=== PATIENT | female | born 2000 | race Asian ===

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

== ENCOUNTER 2020-03-22 18:53 | Outpatient (CLI) | payer OTHER | END 2020-03-22 18:54 | disposition critical access hospital (66) | LOC: EMS 18:53 | PROVIDERS: ATTEND Surgery | DX: R56.9 Unspecified convulsions (principal) | CPT/HCPCS: A0425; A0427 ==

== ENCOUNTER 2020-03-22 19:11 | Emergency (ER) | payer MEDICAID, OTHER ==
--- NOTE | 2020-03-22 19:21 | ED Physician Documentation ---
History of Present Illness - Stated complaint Stated Complaint: SZ - Chief complaint Chief Complaint: Neuro - History obtained from History obtained from: Patient, EMS - History of Present Illness Timing: Today Pain level max: 0 Pain level now: 0 - Additonal information Additional information: 19-year-old female with a history of autism and traumatic brain injury presents to the emergency department after having a seizure at home tonight. Her last seizure was reportedly 3 years ago. She is on Keppra at home. She states she has not missed any doses. No difficulty with sleeping. No recent illness. Tonight she was walking upstairs when her mother heard a thump and found the patient having a seizure on the landing of the staircase. Placed in a c-collar and backboard by EMS. Review of Systems Constitutional: denies: Fever, Chills Skin: denies: Rash Musculoskeletal: denies: Neck pain, Back pain Neurologic: reports: Seizure. denies: Focal weakness, Numbness PD PAST MEDICAL HISTORY - Past Medical History Cardiovascular: None Respiratory: None Neuro: Other (autism) Endocrine/Autoimmune: None GI: None Psych: None Musculoskeletal: None - Present Medications Home Medications: Ambulatory Orders Medication Instructions Recorded Confirmed levETIRAcetam [Keppra] 5 ml PO BID 03/22/20 03/22/20 - Allergies Allergies/Adverse Reactions: Allergies Allergy/AdvReac Type Severity Reaction Status Date / Time No Known Drug Allergies Allergy Verified 03/22/20 19:19 PD ED PE NORMAL - Vitals Vital signs reviewed: Yes - General General: Alert and oriented X 3, No acute distress - HEENT HEENT: Atraumatic, PERRL, Ears normal, Moist mucous membranes, Pharynx benign - Neck Neck: Supple, no meningeal sign, No bony TTP - Cardiac Cardiac: RRR - Respiratory Respiratory: No respiratory distress, Clear bilaterally - Abdomen Abdomen: Soft, Non tender, Non distended - Back Back: No spinal TTP - Derm Derm: Warm and dry - Extremities Extremities: Normal ROM s pain - Neuro Neuro: Alert and oriented X 3, 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, No motor deficit, No sensory deficit, Normal speech Eye Opening: Spontaneous Motor: Obeys Commands Verbal: Oriented GCS Score: 15 Results - Vitals Vitals: Vital Signs - 24 hr 03/22/20 03/22/20 03/22/20 19:21 19:23 20:06 Temperature 36.9 C 36.9 C 36.9 C Heart Rate 116 H 110 H 108 H Respiratory 18 18 18 Rate Blood Pressure 124/70 124/70 103/74 O2 Saturation 99 99 100 03/22/20 20:56 Temperature 36.9 C Heart Rate 98 Respiratory 18 Rate Blood Pressure 110/72 O2 Saturation 100 Oxygen O2 Source Room air - Rads (name of study) head CT Radiology: Prelim report reviewed, EMP read contemporaneously, See rad report (no acute abnormality) cervical spine CT Radiology: Prelim report reviewed, EMP read contemporaneously, See rad report (no acute abnormality) PD MEDICAL DECISION MAKING - ED course Complexity details: reviewed results, re-evaluated patient, considered differential, d/w patient, d/w family ED course: 19-year-old female with recurrent seizures. She states she has not missed any dosages of her medication. No recent illness. No acute findings on CT of the head or neck. CTs performed as she was still post ictal and combined with her autism and TBI, unclear how responsive to pain she would have been at the time. Patient is eating and drinking. Ambulating well. No intraoral lesions. Mother counseled regarding signs and symptoms for which I believe and urgent re- evaluation would be necessary. Mother with good understanding of and agreement to plan and is comfortable going home at this time This document was made in part using voice recognition software. While efforts are made to proofread this document, sound alike and grammatical errors may occur. Departure - Departure Disposition: 01 Home, Self Care Clinical Impression: Seizure Condition: Good Instructions: ED Seizure Recurrent Follow-Up: your,doctor in 1 week [Other] Comments: Follow-up with your doctor for further care. Return if you worsen. Continue your medications at home. Discharge Date/Time: 03/22/20 20:56
--- NOTE | 2020-03-22 19:45 | CT Report ---
PROCEDURE: HEAD WO INDICATIONS: fall, seizure TECHNIQUE: Noncontrast 4.5 mm thick angled axial sections acquired from the foramen magnum to the vertex. For r adiation dose reduction, the following was used: automated exposure control, adjustment of mA and/or kV according to patient size. COMPARISON: 09/12/2017 FINDINGS: Image quality: Excellent. CSF spaces: Basal cisterns are patent. No extra-axial fluid collections. Ventricles are normal in size and shape. Brain: No midline shift. No intracranial masses or hemorrhage. Niño-white matter interface is norm al. Skull and face: Calvarium and visualized facial bones are intact, without suspicious lesions. Sinuses: Visualized sinuses and mastoids are clear. IMPRESSION: Negative head CT in the setting of acute trauma. No evidence acute stroke, hemorrhage, o r mass. Reviewed by: Rodolfo Brown MD on 03/22/2020 7:44 PM PST Approved by: Rodolfo Brown MD on 03/22/2020 7:44 PM PST Station ID: [id number]
--- NOTE | 2020-03-22 19:47 | CT Report ---
PROCEDURE: CERVICAL SPINE WO INDICATIONS: fall, seizure TECHNIQUE: Noncontrast 3 mm thick sections acquired from the skull base to the T4 level. Sagittal and coronal r eformats were then constructed. For radiation dose reduction, the following was used: automated exp osure control, adjustment of mA and/or kV according to patient size. COMPARISON: None. FINDINGS: Image quality: Excellent. Bones: No fractures or dislocations. Visualized superior ribs are intact. Soft tissues: Prevertebral soft tissues are normal in thickness. No paravertebral hematomas. No ap ical pneumothoraces. IMPRESSION: No evidence acute cervical fracture or dislocation. Reviewed by: Rodolfo Brown MD on 03/22/2020 7:45 PM PST Approved by: Rodolfo Brown MD on 03/22/2020 7:45 PM PST Station ID: [id number]
[2020-03-22 20:59] VITALS: BP 110/72
== END 2020-03-22 20:56 | disposition home or self-care (01) ==
LOC: EDUNIT# → ED 19:11
DX: R56.9 Unspecified convulsions (principal); F84.0 Autistic disorder; Z87.820 Personal history of traumatic brain injury; Z79.899 Other long term (current) drug therapy
CPT/HCPCS: 99284

== ENCOUNTER 2022-04-03 07:00 | Outpatient (CLI) | payer MEDICAID, OTHER ==
[2022-04-03 21:16] LABS: BASOPHILS % (AUTO) 0.5 %; EOSINOPHILS # (AUTO) 0.1 10^3/uL (0.0-0.7); EOSINOPHILS % (AUTO) 1.7 %; HCT - HEMATOCRIT 43.7 % (37.0-47.0); HGB - HEMOGLOBIN 14.8 g/dL (12.0-16.0); LYMPHOCYTES # (AUTO) 2.7 10^3/uL (1.5-3.5); LYMPHOCYTES % (AUTO) 35.9 %; MEAN CORPUSCULAR HEMOGLOBIN 30.1 pg (27.0-31.0); MEAN CORPUSCULAR HGB CONC 33.9 g/dL (32.0-36.0); MEAN CORPUSCULAR VOLUME 88.8 fL (81.0-99.0); MEAN PLATELET VOLUME 9.4 fL (7.9-10.8); MONOCYTES # (AUTO) 0.5 10^3/uL (0.0-1.0); MONOCYTES % (AUTO) 5.9 %; NEUTROPHILS # (AUTO) 4.3 10^3/uL (1.5-6.6); NEUTROPHILS % (AUTO) 55.7 %; PLT - PLATELET COUNT 426 10^3/uL (130-450); RED BLOOD COUNT 4.92 10^6/uL (4.20-5.40); RED CELL DISTRIBUTION WIDTH 11.9 % (12.0-15.0); WHITE BLOOD COUNT 7.6 x10^3/uL (4.8-10.8)
[2022-04-03 21:27] LABS: ALBUMIN 4.9 g/dL (3.2-5.5); ALBUMIN/GLOBULIN RATIO 1.3 (1.0-2.2); BILIRUBIN,TOTAL 0.8 mg/dL (0.2-1.0); CALCIUM 9.5 mg/dL (8.5-10.3); CREATININE 0.5 mg/dL (0.4-1.0); POTASSIUM 3.8 mmol/L (3.5-5.0); TOTAL PROTEIN 8.8 g/dL (6.7-8.2)
== END 2022-04-03 23:59 | disposition home or self-care (01) ==
LOC: LAB.N 07:00
PROVIDERS: ATTEND Family Medicine
DX: G40.909 Epilepsy, unspecified, not intractable, without status epilepticus (principal)
CPT/HCPCS: 36415; 80053; 80177; 85025

== ENCOUNTER 2022-05-30 14:20 | Outpatient (CLI) | payer MEDICAID | END 2022-05-30 23:59 | disposition EMS.NT | LOC: EMS 14:20 | DX: R56.9 Unspecified convulsions (principal) ==

== ENCOUNTER 2022-09-11 14:44 | Emergency (ER) | payer MEDICAID ==
--- NOTE | 2022-09-11 15:44 | ED Physician Documentation ---
History of Present Illness - Stated complaint Stated Complaint: SEIZURE/HEAD INJ - Chief complaint Chief Complaint: Neuro - Additonal information Additional information: 21-year-old female who has a history of a known autism disorder as well as traumatic brain injury with recurrent seizures presents to the emergency department for evaluation of seizure activity after a witnessed seizure at home. By the time EMS arrived she was no longer postictal. Per EMS patient has not missed any doses of her Keppra. Patient has had previous neuroimaging Review of Systems Constitutional: denies: Fever Cardiac: reports: Reviewed and negative GI: reports: Reviewed and negative Musculoskeletal: reports: Reviewed and negative Neurologic: reports: Seizure Psychiatric: reports: Reviewed and negative PD PAST MEDICAL HISTORY - Past Medical History Cardiovascular: None Respiratory: None Neuro: Other (autism) Endocrine/Autoimmune: None GI: None Psych: None Musculoskeletal: None - Past Surgical History Past Surgical History: No - Present Medications Home Medications: Ambulatory Orders Medication Instructions Recorded Confirmed levETIRAcetam [Keppra] 5 ml PO BID 03/22/20 03/22/20 - Allergies Allergies/Adverse Reactions: Allergies Allergy/AdvReac Type Severity Reaction Status Date / Time No Known Drug Allergies Allergy Verified 09/11/22 15:26 - Social History Does the pt smoke?: No Smoking Status: Never smoker Does the pt drink ETOH?: No Does the pt have substance abuse?: No - Immunizations Immunizations are current?: Yes - POLST Patient has POLST: No PD ED PE NORMAL - General General: Alert and oriented X 3, No acute distress, Well developed/nourished, Ot her (Does not appear postictal.) - HEENT HEENT: Atraumatic - Neck Neck: Supple, no meningeal sign - Cardiac Cardiac: RRR, No murmur - Respiratory Respiratory: No respiratory distress - Abdomen Abdomen: Normal bowel sounds, Soft - Derm Derm: Normal color, Warm and dry, No rash - Extremities Extremities: No deformity - Neuro Neuro: Alert and oriented X 3, 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0 Sodium 134 L Potassium 3.6 Chloride 100 L Carbon Dioxide 26 Anion Gap 8.0 BUN 7 Creatinine 0.7 Estimated GFR (MDRD) 105 Glucose 120 H Calcium 8.9 Total Bilirubin 0.5 AST 29 ALT 42 Alkaline Phosphatase 49 Total Protein 8.2 Albumin 4.2 Globulin 4.0 Albumin/Globulin Ratio 1.1 Lipase 34 PD Medical Decision Making - ED course Complexity details: reviewed results, considered differential, d/w patient ED course: 21-year-old female with a history of autism, traumatic brain injury as well as recurrent seizures presents emergency department after witnessed seizure at home. She is on Keppra. Per EMS there have been no missed doses. Patient was not postictal for EMS and on arrival to the emergency department was alert and nonfocal. Did obtain a CBC and electrolytes today that showed no acute worrisome abnormality as a cause for seizure. With history of previous Negative imaging and no trauma today I did not feel that CT imaging was warranted. Patient was advised to follow with her neurologist. Clinically patient does not present as status epilepticus. She has been monitored here in the emergency department for nearly 2 hours without any change in mental status and no seizure activity noted. Usual emergent return precautions for worsening or recurrent symptoms was discussed. Departure - Departure Disposition: Home, Self Care Clinical Impression: Seizure Condition: Stable Record reviewed to determine appropriate education?: Yes Comments: Tonia did have a seizure today. However by the time she arrived to the emergency department she has been alert and she is not postictal. We did obtain routine screening CBC and electrolytes that showed no acute worrisome findings. I recommend that she continue on the Keppra. She does not appear to be in status epilepticus. Please discuss this ED visit with her neurologist. Return to the ER for new or worsening symptoms
[2022-09-11 15:56] LABS: BASOPHILS % (AUTO) 0.3 %; EOSINOPHILS # (AUTO) 0.1 10^3/uL (0.0-0.7); EOSINOPHILS % (AUTO) 0.7 %; HCT - HEMATOCRIT 40.6 % (37.0-47.0); HGB - HEMOGLOBIN 14.1 g/dL (12.0-16.0); LYMPHOCYTES % (AUTO) 22.7 %; MEAN CORPUSCULAR HEMOGLOBIN 29.8 pg (27.0-31.0); MEAN CORPUSCULAR HGB CONC 34.7 g/dL (32.0-36.0); MEAN CORPUSCULAR VOLUME 85.8 fL (81.0-99.0); MONOCYTES # (AUTO) 0.5 10^3/uL (0.0-1.0); MONOCYTES % (AUTO) 5.5 %; NEUTROPHILS # (AUTO) 6.2 10^3/uL (1.5-6.6); NEUTROPHILS % (AUTO) 70.1 %; PLT - PLATELET COUNT 399 10^3/uL (130-450); RED BLOOD COUNT 4.73 10^6/uL (4.20-5.40); RED CELL DISTRIBUTION WIDTH 11.7 % (12.0-15.0); WHITE BLOOD COUNT 8.9 x10^3/uL (4.8-10.8)
[2022-09-11 16:07] LABS: ALBUMIN 4.2 g/dL (3.2-5.5); ALBUMIN/GLOBULIN RATIO 1.1 (1.0-2.2); BILIRUBIN,TOTAL 0.5 mg/dL (0.2-1.0); CALCIUM 8.9 mg/dL (8.5-10.3); CREATININE 0.7 mg/dL (0.4-1.0); POTASSIUM 3.6 mmol/L (3.5-5.0); TOTAL PROTEIN 8.2 g/dL (6.7-8.2)
[2022-09-11 16:36] VITALS: BP 114/64
== END 2022-09-11 16:33 | disposition home or self-care (01) ==
LOC: EDUNIT# → ED 14:44
DX: R56.9 Unspecified convulsions (principal)
CPT/HCPCS: 36415; 80053; 83690; 85025; 99283; 99284

== ENCOUNTER 2023-05-19 09:51 | Outpatient (CLI) | payer MEDICAID ==
[2023-05-19 12:05] LABS: BASOPHILS # (AUTO) 0.1 10^3/uL (0.0-0.1); BASOPHILS % (AUTO) 0.4 %; EOSINOPHILS % (AUTO) 0.3 %; HCT - HEMATOCRIT 43.5 % (37.0-47.0); HGB - HEMOGLOBIN 14.5 g/dL (12.0-16.0); LYMPHOCYTES # (AUTO) 2.1 10^3/uL (1.5-3.5); LYMPHOCYTES % (AUTO) 15.3 %; MEAN CORPUSCULAR HEMOGLOBIN 29.5 pg (27.0-31.0); MEAN CORPUSCULAR HGB CONC 33.3 g/dL (32.0-36.0); MEAN CORPUSCULAR VOLUME 88.4 fL (81.0-99.0); MEAN PLATELET VOLUME 9.5 fL (7.9-10.8); MONOCYTES # (AUTO) 0.6 10^3/uL (0.0-1.0); MONOCYTES % (AUTO) 4.3 %; NEUTROPHILS # (AUTO) 10.6 10^3/uL (1.5-6.6); NEUTROPHILS % (AUTO) 79.1 %; PLT - PLATELET COUNT 391 10^3/uL (130-450); RED BLOOD COUNT 4.92 10^6/uL (4.20-5.40); RED CELL DISTRIBUTION WIDTH 12.1 % (12.0-15.0); WHITE BLOOD COUNT 13.4 x10^3/uL (4.8-10.8)
[2023-05-19 12:27] LABS: ALBUMIN 4.6 g/dL (3.2-5.5); ALBUMIN/GLOBULIN RATIO 1.4 (1.0-2.2); BILIRUBIN,TOTAL 0.5 mg/dL (0.2-1.0); CALCIUM 9.7 mg/dL (8.5-10.3); CREATININE 0.7 mg/dL (0.6-1.3); POTASSIUM 3.7 mmol/L (3.5-4.5); TOTAL PROTEIN 7.9 g/dL (6.4-8.9)
[2023-05-19 12:33] LABS: THYROID STIMULATING HORMONE 0.77 uIU/mL (0.34-5.60)
== END 2023-05-19 09:52 | disposition home or self-care (01) ==
LOC: LAB.N 09:51
PROVIDERS: ATTEND Registered Nurse
DX: Z13.228 Encounter for screening for other metabolic disorders (principal); Z13.29 Encounter for screening for other suspected endocrine disorder; Z13.0 Encounter for screening for diseases of the blood and blood-forming organs and certain disorders involving the immune mechanism; Z79.899 Other long term (current) drug therapy
CPT/HCPCS: 36415; 80053; 80177; 84443; 85025